=== PATIENT | male | born 1950 | race Caucasian/White ===

== ENCOUNTER 2020-09-24 11:20 | Inpatient (IN) | payer OTHER, SELFPAY ==
[~2020-09-24] VITALS: Ht 165.1 cm; Wt 126.6 kg
[~2020-09-24 11:20] MED LIST: ASPI-1393 PO; ATOR10TA68 PO; CARV25TA55 PO; DIVA500T4 PO; FER300L PO; GLIP10TA11 PO; LISI-209 PO; MIRA50TA PO; SITA100T11 PO; TAMS-11 PO
--- NOTE | 2020-09-24 11:30 | NUR ---
Patient to ER bed 4 to gown for evaluation. Side rails up.
--- NOTE | 2020-09-24 11:40 | NUR ---
pt arrives from home w/ vague c/o ALOC and slurred speech since 0600 today. Pt is currently AAOx3. Unsteady gait noted upon ambulation. 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
--- NOTE | 2020-09-24 11:42 | NUR ---
# 20 gauge angiocath placed to LAC Use of asceptic technique. Opsite placed over site. Blood return noted. Blood for lab drawn from site. Flushed with 10 cc of normal saline. No evidence of infiltration noted. Patient tolerated well.
--- NOTE | 2020-09-24 11:42 | NUR ---
current acce check is 321
--- NOTE | 2020-09-24 11:43 | NUR ---
UA collected and sent to the lab
--- NOTE | 2020-09-24 11:45 | NUR ---
GILES Neal at bedside examining patient.
[2020-09-24 11:53] VITALS: BP_SYST 102
--- NOTE | 2020-09-24 12:00 | NUR ---
Patient transported to radiology via gurney, accompanied by parts technician.
[2020-09-24 12:08] LABS: BILIRUBIN,URINE NEGATIVE (NEGATIVE); BLOOD, URINE NEGATIVE (NEGATIVE); CLARITY/URINE CLEAR (CLEAR); COLOR,URINE YELLOW (YELLOW); GLUCOSE,URINE 3+ (NEGATIVE); KETONES,URINE NEGATIVE (NEGATIVE); LEUKOCYTE ESTERASE ,URINE NEGATIVE (NEGATIVE); NITRITE, URINE NEGATIVE (NEGATIVE); PROTEIN URINE NEGATIVE (NEGATIVE); UROBILINOGEN,URINE 0.2 (0.2-1.0)
[2020-09-24 12:10] LABS: BASOPHILS # (AUTO) 0.1 K/uL (0.0-0.2); BASOPHILS % (AUTO) 0.8 % (0.0-2.0); EOSINOPHILS # (AUTO) 0.4 K/uL (0.0-0.4); EOSINOPHILS % (AUTO) 4.7 % (0.0-4.0); HEMATOCRIT 39.3 % (36-54); HEMOGLOBIN 13.2 g/dL (14.0-18.0); LYMPHOCYTES # (AUTO) 1.7 K/uL (1.0-5.5); LYMPHOCYTES % (AUTO) 18.1 % (20.5-51.5); MEAN CORPUSCULAR HEMOGLOBIN 30 pg (27-31); MEAN CORPUSCULAR HGB CONC 34 % (32-36); MEAN CORPUSCULAR VOLUME 90 fL (79.0-98.0); MONOCYTES # (AUTO) 0.7 K/uL (0.0-1.0); NEUTROPHILS # (AUTO) 6.3 K/uL (1.8-7.7); NEUTROPHILS % (AUTO) 68.4 % (40.0-70.0); PLATELET COUNT (AUTO) 155 K/uL (130-430); RED BLOOD CELL COUNT(AUTO) 4.39 MIL/uL (4.2-6.2); RED CELL DISTRIBUTION WIDTH 14.2 % (9.0-15.0); WHITE BLOOD COUNT (AUTO) 9.1 K/uL (4.8-10.8)
[2020-09-24 12:12] LABS: CALCIUM 8.2 mg/dL (8.4-11.0); CREATININE 1.2 mg/dL (0.55-1.30); POTASSIUM 4.6 mmol/L (3.5-5.1)
[2020-09-24 12:14] LABS: PROTHROMBIN TIME 10.6 SECS (9.5-12.5)
[2020-09-24 12:17] LABS: BARBITURATE, URINE NEGATIVE (NEG <=200); BENZODIAZEPINE, URINE NEGATIVE (NEG <=150); CANNABINOID, URINE NEGATIVE (NEG <=50); COCAINE, URINE NEGATIVE (NEG <=150); METHAMPHETAMINES SCREEN,URINE NEGATIVE (NEG <=500); OPIATE, URINE NEGATIVE (NEG <=100); PHENCYCLIDINE SCREEN,URINE NEGATIVE (NEG <=25); UR TRICYCLIC ANTIDEPRESSANTS NEGATIVE (NEG <=300); URINE AMPHETAMINE NEGATIVE (NEG <=500); URINE METHADONE NEGATIVE (NEG <=200); URINE OXYCODONE SCREEN NEGATIVE (NEG <=100); URINE PROPOXYPHENE SCREEN NEGATIVE (NEG <=300)
--- NOTE | 2020-09-24 12:17 | NUR ---
Returned from radiology, back to [facility].
[2020-09-24 12:18] LABS: ALBUMIN 2.9 g/dL (3.4-4.8); TOTAL BILIRUBIN 0.2 mg/dL (0.0-1.0)
[2020-09-24 12:26] LABS: BACTERIA,URINE None Seen /HPF (None Seen); RBC,URINE 0-3 /HPF (0-3); WBC,URINE NONE SEEN /HPF (0-3)
--- NOTE | 2020-09-24 12:37 | NUR ---
CARE ENDORSED TO DRU sanchez
[2020-09-24] MEDS ORDERED: SEMA0.25 SQ (12:57)
[2020-09-24] MEDS ORDERED: FURO40SO5 PO (12:57)
[2020-09-24] MEDS ORDERED: POTA8TAB4 PO (12:57)
--- NOTE | 2020-09-24 13:20 | NUR ---
pt moved from er 4 to er 1, for closer monitoring
[2020-09-24] MEDS ORDERED: ASPIRIN 325 MG TABLET PO ONE (13:45)
--- NOTE | 2020-09-24 13:59 | NUR ---
tele neuro consult done
[2020-09-24] MEDS ORDERED: CIPR500T5 PO (14:02)
--- NOTE | 2020-09-24 14:22 | NUR ---
swallow eval done
--- NOTE | 2020-09-24 14:22 | NUR ---
Patient will be admitted to care of Dr. Vaughan. Admitted to tele unit. Will go to room 113-b. Belongings list completed. Complete and up to date summary report printed. SBAR report to be given at bedside with opportunity for questions.
[2020-09-24 14:50] VITALS: BP_SYST 154
--- NOTE | 2020-09-24 14:50 | NUR ---
Patient received Patient received by ER nurse. Patient is confused, lethargic with slurred speech. Patient states "I feel like I am day dreaming" no complaint of pain. Patient is tachypneic, no signs or symptoms of respiratory distress. IV is patent no signs or symptoms of infiltration. educated patient on plan of care, patient able to verbalized understanding. Will continue to reenforce education as patient has moments of confusion. Bed is in lowest position call light within reach, fall, aspiration and stroke precautions are in place. Will continue to monitor.
--- NOTE | 2020-09-24 18:51 | NUR ---
Closing note Patient is resting in bed A&O x3 patient is not as confused as previously noted. All needs were met. Bed is in lowest position, call light within reach. Will endorse report to flight communications specialist.
[2020-09-24 20:00] VITALS: BP_SYST 149
[2020-09-24] MEDS ORDERED: NON-FORMULARY MEDICATION (Semaglutide (Ozempic) 0.25 MG) SQ SCH (20:30)
[2020-09-24] MEDS ORDERED: KCL 20 mEq in D5/0.45NS 1000mL 1,000 ML IV ONE (20:32)
[2020-09-24] MEDS ORDERED: LevALBUTEROL HCL 1.25 MG/0.5 ML *CONC.* VIAL.NEB (XOPENEX CONC.) INH PRN (20:45)
[2020-09-24] MEDS: DIVALPROEX SODIUM 500 MG TAB.SR.24H (DEPAKOTE ER) PO SCH ×2 (21:00→23:57)
[2020-09-24] MEDS: ATORVASTATIN 10 MG TABLET PO SCH (21:17)
[2020-09-24] MEDS: KCL 20 mEq in D5/0.45NS 1000mL 1,000 ML IV SCH (21:17)
[2020-09-24] MEDS: CARVEDILOL 25 MG TABLET (COREG) PO SCH (21:18)
[2020-09-24] MEDS: CIPROFLOXACIN HCL 500 MG TABLET PO SCH (21:18)
--- NOTE | 2020-09-24 21:18 | NUR ---
IVF/Meds Hung IVF and infusing well, no infiltration noted. Due meds given. Patient took pills and swallowed with water. Reviewed side effects (Lovenox) and he verbalized understanding.
[2020-09-24] MEDS: INSULIN REGULAR, HUMAN 100 UNITS/ML, 10 ML VIAL (humuLIN R) SUBCUT PRN (21:25)
[2020-09-24] MEDS: ENOXAPARIN SODIUM 40 MG/0.4 ML SYRINGE SUBCUT SCH (21:27)
[2020-09-24 21:33] VITALS: BP_SYST 154
--- NOTE | 2020-09-24 23:37 | NUR ---
Med, IV out, refused gown. Patient got up out of bed and pulled out IV. He removed gown and put on his shirt. He refused to put a new gown and states he wants to keep his shirt on. Depakote ER given, it was not given earlier d/t it was not available in [facility] pyxis stations, I found out ICU had the medication and thus late administration.
[2020-09-24] MEDS ORDERED: DIVALPROEX SODIUM 500 MG TAB.SR.24H (DEPAKOTE ER) PO ONE (23:40)
[2020-09-24] MEDS: LevALBUTEROL HCL 1.25 MG/0.5 ML *CONC.* VIAL.NEB (XOPENEX CONC.) INH SCH (23:55)
--- NOTE | 2020-09-25 00:15 | NUR ---
IV start # 22 gauge angiocath placed to RFA. Blood return noted and flushed with 10 cc of normal saline. No evidence of infiltration noted. Patient tolerated and resumed IVF.
[2020-09-25 01:34] VITALS: BP_SYST 117
--- NOTE | 2020-09-25 01:47 | NUR ---
awake Patient is light sleeper, he is up sitting on bed w/legs dangle. I asked if he needs anything and he said no, just wanted to sit. After few minutes returned to resting position. IVF infusing well, call light w/in reach.
--- NOTE | 2020-09-25 03:00 | NUR ---
pt.has been re-assigned.i have assumed the care of the pt.for the remainder of the shift.pt.presents quiescent affect;calm, somnolent..iv access intact;patent iv fluids infusing.urinal w/in access of the pt.o2 therapy via nasal cannulae.call light/ telephone w/in access of the pt.pt.capable to ambulate/reposition self.
[2020-09-25] MEDS: KCL 20 mEq in D5/0.45NS 1000mL 1,000 ML IV SCH (03:20)
--- NOTE | 2020-09-25 03:24 | NUR ---
endorsed report Patient stable, sleeping, no distress. Endorsed report to LEO Saldana
--- NOTE | 2020-09-25 04:00 | NUR ---
pt.has awakened.pt.had requested snacks/beverages.i have provided sandwich x2 /milk.no co pain,nausea.o2-sat%=98%. general status stable.respiratory status stable.call light/telephone w/in access of the pt.urinal w/in access of the pt.
--- NOTE | 2020-09-25 06:00 | NUR ---
pt.assessed.blood glucose assessed value;344mg/dl.i have administered insulin;regular;6-units.i have weighed the pt.2/t chf/lasix hx. no c/o pain,nausea.pt.had requests snacks/milk,coffee.i have provided the snacks/milk,coffee.jens;field representatives director provided additional coffee.pt.capable to reposition self/ambulate. iv fluids access intact;patent iv fluids infusing.call light/telephone w/in access of the pt. mri;brain order per .mri staff not available until sunday.09/27/20.
[2020-09-25] MEDS: INSULIN REGULAR, HUMAN 100 UNITS/ML, 10 ML VIAL (humuLIN R) SUBCUT PRN ×5 (06:28→20:48)
[2020-09-25 06:43] LABS: BASOPHILS % (AUTO) 0.5 % (0.0-2.0); EOSINOPHILS # (AUTO) 0.4 K/uL (0.0-0.4); EOSINOPHILS % (AUTO) 4.6 % (0.0-4.0); HEMOGLOBIN 12.5 g/dL (14.0-18.0); LYMPHOCYTES # (AUTO) 1.6 K/uL (1.0-5.5); LYMPHOCYTES % (AUTO) 18.7 % (20.5-51.5); MEAN CORPUSCULAR HEMOGLOBIN 30 pg (27-31); MEAN CORPUSCULAR HGB CONC 34 % (32-36); MEAN CORPUSCULAR VOLUME 89 fL (79.0-98.0); MONOCYTES # (AUTO) 0.6 K/uL (0.0-1.0); MONOCYTES % (AUTO) 7.4 % (1.7-9.3); NEUTROPHILS # (AUTO) 5.9 K/uL (1.8-7.7); NEUTROPHILS % (AUTO) 68.8 % (40.0-70.0); PLATELET COUNT (AUTO) 134 K/uL (130-430); RED BLOOD CELL COUNT(AUTO) 4.14 MIL/uL (4.2-6.2); RED CELL DISTRIBUTION WIDTH 14.2 % (9.0-15.0); WHITE BLOOD COUNT (AUTO) 8.5 K/uL (4.8-10.8)
[2020-09-25 06:49] LABS: CALCIUM 7.9 mg/dL (8.4-11.0); CREATININE 1.23 mg/dL (0.55-1.30)
[2020-09-25] MEDS: LevALBUTEROL HCL 1.25 MG/0.5 ML *CONC.* VIAL.NEB (XOPENEX CONC.) INH SCH ×3 (07:13→23:01)
[2020-09-25 07:58] VITALS: BP_SYST 140
[2020-09-25] MEDS: CIPROFLOXACIN HCL 500 MG TABLET PO SCH ×2 (08:04→20:44)
[2020-09-25] MEDS: CARVEDILOL 25 MG TABLET (COREG) PO SCH ×2 (08:04→20:44)
[2020-09-25] MEDS: ASPIRIN 81 MG TABLET(ECOTRIN) PO SCH (08:05)
[2020-09-25] MEDS: TAMSULOSIN HCL 0.4 MG CAP PO SCH (08:05)
[2020-09-25] MEDS: FUROSEMIDE 40 MG TABLET PO SCH (08:05)
[2020-09-25] MEDS: ATORVASTATIN 10 MG TABLET PO SCH (08:06)
[2020-09-25] MEDS: POTASSIUM CHLORIDE 8 MEQ TABLET.SA PO SCH (08:06)
[2020-09-25] MEDS: FERROUS SULFATE 300 MG/5 ML UDC PO SCH (08:06)
[2020-09-25] MEDS: lisinopriL 5 MG TABLET PO SCH (08:06)
--- NOTE | 2020-09-25 08:30 | NUR ---
Neuro Alert/oriented x4 clear speech ambulate to bathroom with steady gait , discussed plan of care safety verbalized understanding.
[2020-09-25] MEDS ORDERED: POTASSIUM CHLORIDE 8 MEQ TABLET.SA PO SCH (09:00)
[2020-09-25] MEDS ORDERED: NON-FORMULARY MEDICATION (Mirabegron (Myrbetriq) 50 MG) PO SCH (09:00)
[2020-09-25 12:14] VITALS: BP_SYST 127
--- NOTE | 2020-09-25 14:03 | NUR ---
Seen and examined by the neurologist, Dr. Lehman., alert/oriented clear speech
[2020-09-25 16:06] VITALS: BP_SYST 122
--- NOTE | 2020-09-25 19:55 | NUR ---
OPENING NOTES Received report from LEO Tirado. Patient resting in bed, AAOx3, breathing evenly and nonlabored on room air. Patient has an IV on the right forearm saline locked, flushed, no s/s of infiltration or infection noted at this time. Educated patient on plan of care, fall/safety precautions, call light system, patient stated understanding. Bed is locked, and at lowest position, will continue to monitor.
[2020-09-25 20:15] VITALS: BP_SYST 120
[2020-09-25] MEDS: DIVALPROEX SODIUM 500 MG TAB.SR.24H (DEPAKOTE ER) PO SCH (20:45)
[2020-09-25] MEDS: ENOXAPARIN SODIUM 40 MG/0.4 ML SYRINGE SUBCUT SCH (20:46)
[2020-09-26 01:34] VITALS: BP_SYST 123
[2020-09-26] MEDS: INSULIN REGULAR, HUMAN 100 UNITS/ML, 10 ML VIAL (humuLIN R) SUBCUT PRN ×4 (06:24→21:13)
[2020-09-26] MEDS: LevALBUTEROL HCL 1.25 MG/0.5 ML *CONC.* VIAL.NEB (XOPENEX CONC.) INH SCH ×2 (07:13→15:13)
[2020-09-26] MEDS: ATORVASTATIN 10 MG TABLET PO SCH (08:08)
[2020-09-26] MEDS: FUROSEMIDE 40 MG TABLET PO SCH (08:08)
[2020-09-26] MEDS: FERROUS SULFATE 300 MG/5 ML UDC PO SCH (08:08)
[2020-09-26] MEDS: TAMSULOSIN HCL 0.4 MG CAP PO SCH (08:08)
[2020-09-26] MEDS: POTASSIUM CHLORIDE 8 MEQ TABLET.SA PO SCH (08:09)
[2020-09-26] MEDS: ASPIRIN 81 MG TABLET(ECOTRIN) PO SCH (08:09)
[2020-09-26] MEDS: CIPROFLOXACIN HCL 500 MG TABLET PO SCH ×2 (08:09→21:04)
[2020-09-26] MEDS: CARVEDILOL 25 MG TABLET (COREG) PO SCH ×2 (08:09→21:04)
[2020-09-26] MEDS: lisinopriL 5 MG TABLET PO SCH (08:09)
[2020-09-26 08:11] VITALS: BP_SYST 142
--- NOTE | 2020-09-26 10:00 | NUR ---
SPEECH THERAPIST, YASH WAS CALLED, RE: SWALLOWING EVAL. LEFT A VOICE MESSAGE.
[2020-09-26 12:14] VITALS: BP_SYST 142
--- NOTE | 2020-09-26 12:57 | NUR ---
Neuro Alert/oriented x4 prefers to be discharge after MRI from the hospital informed MRI checklist completed ,ambulates with steady gait clear speech no problem swallowing.
--- NOTE | 2020-09-26 15:05 | NUR ---
S.T. SPEECH/LANGUAGE EVAL SPEECH/LANGUAGE EVAL COMPLETED. PT PRESENTS W/ FUNCTIONAL COMMUNICATION SKILLS. NO SLURRED SPEECH. NO WORD RETRIEVAL DIFFICULTY. PER PT, SLURRED SPEECH HAS RESOLVED. NO TX INDICATED. NURSE BREANA NOTIFIED.
[2020-09-26 15:12] VITALS: BP_SYST 126
--- NOTE | 2020-09-26 19:30 | NUR ---
OPENING NOTE Received report from daytime nurse. Patient resting in bed, AAOx3. Respirations even and unlabored on room air. Lungs clear to auscultation. Patient has an IV on the right forearm saline locked. IV patent with no signs of infiltration. Patient denies SOB and slurred speech. Educated patient on plan of care. Safety precautions in place. Call light within reach. Patient verbalized understanding.
[2020-09-26 20:00] VITALS: BP_SYST 126
[2020-09-26] MEDS: ENOXAPARIN SODIUM 40 MG/0.4 ML SYRINGE SUBCUT SCH (21:05)
[2020-09-26] MEDS: DIVALPROEX SODIUM 500 MG TAB.SR.24H (DEPAKOTE ER) PO SCH (21:06)
[2020-09-27] VITALS: BP_SYST 124
[2020-09-27] MEDS: LevALBUTEROL HCL 1.25 MG/0.5 ML *CONC.* VIAL.NEB (XOPENEX CONC.) INH SCH ×3 (00:35→15:00)
[2020-09-27] MEDS: INSULIN REGULAR, HUMAN 100 UNITS/ML, 10 ML VIAL (humuLIN R) SUBCUT PRN ×4 (06:10→21:22)
--- NOTE | 2020-09-27 07:04 | NUR ---
Closing Note Patient laying in bed with respirations even and unlabored. AAOx3. No signs of distress noted. Right FA IV saline locked and patent. No signs of infiltration noted. Patient denies slurred speech. All needs met throughout shift. Safety precautions in place. Call light within reach. Will endorse care to daytime RN
--- NOTE | 2020-09-27 07:45 | NUR ---
am notes pt in bed. resting comfortably. vitals stable . not in acute distress. iv site rt arm flused well. no s/s of infiltration noted. res s even and unlabored. safety and fall precautions in place and maintained. no s/s of neuro deficit noted. denies any slurred speech or blurred vision. kept comfortable. will conitnue to monitor
[2020-09-27 08:00] VITALS: BP_SYST 137
[2020-09-27] MEDS: CIPROFLOXACIN HCL 500 MG TABLET PO SCH ×2 (09:14→21:05)
[2020-09-27] MEDS: TAMSULOSIN HCL 0.4 MG CAP PO SCH (09:14)
[2020-09-27] MEDS: FERROUS SULFATE 300 MG/5 ML UDC PO SCH (09:14)
[2020-09-27] MEDS: ASPIRIN 81 MG TABLET(ECOTRIN) PO SCH (09:14)
[2020-09-27] MEDS: ATORVASTATIN 10 MG TABLET PO SCH (09:15)
[2020-09-27] MEDS: FUROSEMIDE 40 MG TABLET PO SCH (09:16)
[2020-09-27] MEDS: lisinopriL 5 MG TABLET PO SCH (09:16)
[2020-09-27] MEDS: CARVEDILOL 25 MG TABLET (COREG) PO SCH ×2 (09:17→21:05)
[2020-09-27] MEDS: POTASSIUM CHLORIDE 8 MEQ TABLET.SA PO SCH (09:33)
[2020-09-27] MEDS ORDERED: MILK OF MAGNESIA 30 ML UDC PO ONE (10:00)
[2020-09-27] MEDS ORDERED: MILK OF MAGNESIA 30 ML UDC PO PRN (10:00)
[2020-09-27 10:12] VITALS: BP_SYST 137
[2020-09-27 11:30] VITALS: BP_SYST 143
--- NOTE | 2020-09-27 14:39 | NUR ---
ROUNDS PT STABLE AMBULATING IN ROOM WITH STEADY GAIT. A/OX4. SPEECH CLEAR. NO S/S NEURO DEFICIT NOTED.WAITING FOR MRI TO COME.
--- NOTE | 2020-09-27 15:36 | NUR ---
SS notes: [employer] received a referral to see patient for director social welfare. [employer] spoke with Debby BAILEY who is not aware what the referral is for; possibly an error. SS will remain available.
[2020-09-27 15:43] VITALS: BP_SYST 131
--- NOTE | 2020-09-27 16:36 | NUR ---
came back from mri pt back from mri. ambulating in room. denies any pain or orther discomfort. no new changes noted. will conitnue to monitro
--- NOTE | 2020-09-27 18:33 | NUR ---
DR ROSENBAUM CALLED DR ROSENBAUM CALLED AND NOTIFIED FOR MRI BRAIN RESULTS. NO NEW ORDER RECEIVED. PT CAN BE DISCHARGE PER DR ROSENBAUM . WE WILL LET DR CA KNOW
--- NOTE | 2020-09-27 19:01 | NUR ---
closing notes pt in bed. resting comfortably. vitals stable . not in acute distress. res even and unlabored. safety and fall precautions in place and maintained. no s/s of neuro deficit noted. denies any slurred speech or blurred vision. kept comfortable. bed locked and low position. call light within reach . will endorse to night nurse
--- NOTE | 2020-09-27 19:30 | NUR ---
Opening notes Patient in bed resting. Respirations even and unlabored. No distress noted at this time. Vitals stable. Patient denies pain and slurred speech. Safety precautions in place. Call light within reach of patient.
--- NOTE | 2020-09-27 19:50 | NUR ---
Dr. Vaughan Rounds Seen and examined patient. Stated patient will be discharged tomorrow.
[2020-09-27 20:00] VITALS: BP_SYST 142
[2020-09-27] MEDS: DIVALPROEX SODIUM 500 MG TAB.SR.24H (DEPAKOTE ER) PO SCH (21:06)
[2020-09-27] MEDS: ENOXAPARIN SODIUM 40 MG/0.4 ML SYRINGE SUBCUT SCH (21:07)
[2020-09-28 00:49] VITALS: BP_SYST 145
[2020-09-28] MEDS: INSULIN REGULAR, HUMAN 100 UNITS/ML, 10 ML VIAL (humuLIN R) SUBCUT PRN ×2 (06:48→11:42)
--- NOTE | 2020-09-28 06:51 | NUR ---
Closing Note Patient laying in bed with respirations even and unlabored. No signs of distress noted. Right FA IV saline locked and patent. No signs of infiltration noted. Patient denies slurred speech. No neuro deficits noted. All needs met throughout shift. Safety precautions in place. Call light within reach. Will endorse care to daytime RN
[2020-09-28] MEDS: LevALBUTEROL HCL 1.25 MG/0.5 ML *CONC.* VIAL.NEB (XOPENEX CONC.) INH SCH (07:00)
[2020-09-28 08:00] VITALS: BP_SYST 140
--- NOTE | 2020-09-28 08:00 | NUR ---
OPENING NOTES: RECEIVED FROM ILLUSTRATOR SET RN. PATIENT EATING BREAKFAST. ALERT AND ORIENTED X 4. NO ACUTE DISTRESS NOTED. DENIES ANY DISCOMFORT. FALL AND SAFETY PRECAUTION REINFORCED. CALL LIGHT WITHIN REACH.
[2020-09-28] MEDS: ATORVASTATIN 10 MG TABLET PO SCH (08:35)
[2020-09-28] MEDS: TAMSULOSIN HCL 0.4 MG CAP PO SCH (08:35)
[2020-09-28] MEDS: ASPIRIN 81 MG TABLET(ECOTRIN) PO SCH (08:35)
[2020-09-28] MEDS: POTASSIUM CHLORIDE 8 MEQ TABLET.SA PO SCH (08:35)
[2020-09-28] MEDS: CARVEDILOL 25 MG TABLET (COREG) PO SCH (08:36)
[2020-09-28] MEDS: FUROSEMIDE 40 MG TABLET PO SCH (08:37)
[2020-09-28] MEDS: FERROUS SULFATE 300 MG/5 ML UDC PO SCH (08:38)
[2020-09-28] MEDS: CIPROFLOXACIN HCL 500 MG TABLET PO SCH (08:38)
[2020-09-28] MEDS: lisinopriL 5 MG TABLET PO SCH (08:38)
[2020-09-28 11:01] VITALS: BP_SYST 131
--- NOTE | 2020-09-28 11:24 | NUR ---
Dc Telemetry: Downgrade patient to medical surgical unit as ordered by dr henning.Patient dc home to day.Patient removed his iv line.No active bleeding noted to the site.
[2020-09-28 12:13] VITALS: BP_SYST 131
--- NOTE | 2020-09-28 12:45 | NUR ---
D/C Patient Patient given discharge packet and D/C instructions. Exit Care provided. Patient verbalized understanding. MD discussed with patient the results and treatment provided. Ambulatory with steady gait for discharge to home. Patient in stable condition, ID band removed. IV catheter removed, intact and dressing applied, no active bleeding. All belongings sent with patient.
--- NOTE | 2020-09-28 13:02 | NUR ---
Dietitian Recommendations Continue current diet, as ordered. Please refer to nutrition assessment for details. ANNIE SCOTT
== END 2020-09-28 12:45 | disposition home or self-care (01) | DRG 69 ==
LOC: SED 11:20 → STU 14:04
PROVIDERS: ADMIT Family Medicine; ATTEND Family Medicine
DX: G45.9 Transient cerebral ischemic attack, unspecified (principal); R47.81 Slurred speech; J44.9 Chronic obstructive pulmonary disease, unspecified; E66.01 Morbid (severe) obesity due to excess calories; E10.9 Type 1 diabetes mellitus without complications; I10 Essential (primary) hypertension; E78.5 Hyperlipidemia, unspecified; F17.200 Nicotine dependence, unspecified, uncomplicated; N40.0 Benign prostatic hyperplasia without lower urinary tract symptoms; R13.10 Dysphagia, unspecified; Z20.822 Contact with and (suspected) exposure to COVID-19; Z88.0 Allergy status to penicillin; Z79.899 Other long term (current) drug therapy
CPT/HCPCS: 36415; 70450-TC; 70551; 71045; 76376; 80048; 80053; 80307; 81000; 82962; 83036; 83735; 83880; 84484; 85025; 85610-TC; 85730-TC; 86886; 86900; 86901; 92523; 93005; 94640; 94760; 99291; G0378; G0482; J1650; J1815; J7612

== ENCOUNTER 2022-11-20 09:47 | Emergency (ER) | payer OTHER ==
[~2022-11-20] VITALS: Ht 157.5 cm; Wt 72.6 kg
[~2022-11-20 09:47] MED LIST changes: +CIPR500T5 PO; +FURO40SO5 PO; +POTA8TAB66 PO; +SEMA0.25 SQ
[2022-11-20 10:19] LABS: BILIRUBIN,URINE NEGATIVE (NEGATIVE); BLOOD, URINE NEGATIVE (NEGATIVE); CLARITY/URINE CLEAR (CLEAR); COLOR,URINE YELLOW (YELLOW); GLUCOSE,URINE NEGATIVE (NEGATIVE); KETONES,URINE TRACE (NEGATIVE); LEUKOCYTE ESTERASE ,URINE NEGATIVE (NEGATIVE); NITRITE, URINE NEGATIVE (NEGATIVE); PROTEIN URINE NEGATIVE (NEGATIVE); UROBILINOGEN,URINE 0.2 (0.2-1.0)
[2022-11-20 10:21] LABS: BASOPHILS # (AUTO) 0.1 K/uL (0.0-0.2); BASOPHILS % (AUTO) 0.8 % (0.0-2.0); EOSINOPHILS # (AUTO) 0.3 K/uL (0.0-0.4); HEMATOCRIT 40.1 % (36-54); HEMOGLOBIN 13.3 g/dL (14.0-18.0); LYMPHOCYTES # (AUTO) 3.3 K/uL (1.0-5.5); MEAN CORPUSCULAR HEMOGLOBIN 31 pg (27-31); MEAN CORPUSCULAR HGB CONC 33 % (32-36); MEAN CORPUSCULAR VOLUME 93 fL (79.0-98.0); MONOCYTES # (AUTO) 0.6 K/uL (0.0-1.0); MONOCYTES % (AUTO) 7.7 % (1.7-9.3); NEUTROPHILS # (AUTO) 3.7 K/uL (1.8-7.7); NEUTROPHILS % (AUTO) 46.5 % (40.0-70.0); PLATELET COUNT (AUTO) 207 K/uL (130-430); RED BLOOD CELL COUNT(AUTO) 4.31 MIL/uL (4.2-6.2); RED CELL DISTRIBUTION WIDTH 14.7 % (9.0-15.0); WHITE BLOOD COUNT (AUTO) 7.9 K/uL (4.8-10.8)
[2022-11-20 10:37] LABS: ANION GAP 5 (5-15); CALCIUM 8.4 mg/dL (8.4-11.0); CHLORIDE 98 mmol/L (98-107); CREATININE 1.07 mg/dL (0.55-1.30); GLUCOSE 126 mg/dL (74-106); UREA NITROGEN, BLOOD 25 mg/dL (8-21)
[2022-11-20 10:43] LABS: ALANINE AMINOTRANSFERASE 4 U/L (12-78); ALBUMIN 3.1 g/dL (3.4-4.8); AMYLASE 62 U/L (0-100); ASPARTATE AMINOTRANSFERASE 13 U/L (10-37); LACTATE DEHYDROGENASE 138 U/L (85-227); LIPASE 188 U/L (73-393); TOTAL BILIRUBIN 0.2 mg/dL (0.0-1.0)
[2022-11-20 10:50] VITALS: BP_SYST 104; PULSE 97; RESP 16; TEMP 97.8; O2SAT 97
[2022-11-20 10:52] LABS: ACETONE, SERUM NEGATIVE (NEGATIVE)
[2022-11-20 11:03] LABS: INR 1.1 (0.80-1.20); PROTHROMBIN TIME 11.4 SECS (9.5-12.5)
[2022-11-20 12:27] VITALS: BP_SYST 94; PULSE 96; RESP 19; TEMP 97.8; O2SAT 98
== END 2022-11-20 14:55 | disposition home or self-care (01) ==
LOC: SED 09:47
DX: R10.9 Unspecified abdominal pain (principal); E11.9 Type 2 diabetes mellitus without complications; I10 Essential (primary) hypertension; Z88.0 Allergy status to penicillin; Z79.899 Other long term (current) drug therapy
CPT/HCPCS: 36415; 76376; 80053; 81003; 82009; 82150; 83605; 83615; 83690; 84484; 85025; 85610-TC; 85730-TC; 99285